=== PATIENT | female | born 1995 | race Caucasian/White ===

== ENCOUNTER 2016-09-03 09:04 | Emergency (ER) | payer OTHER ==
[~2016-09-03] VITALS: Ht 167.6 cm; Wt 77.0 kg
[~2016-09-03 09:04] MED LIST: IBUP-238 PO; METH500T3 PO; Z.0.BCPILL PO
[2016-09-03 09:10] VITALS: BP 135/90; PULSE 95; RESP 18; TEMP 98.5; O2SAT 100
[2016-09-03] MEDS ORDERED: PREN1TAB63 (09:19)
[2016-09-03 10:52] LABS: BLOOD, URINE NEG (NEG); GLUCOSE,URINE NEG (NEG); KETONE, URINE NEG (NEG); NITRITE,URINE NEG (NEG); PH, URINE 6.5 (5.0-8.5)
[2016-09-03 10:58] LABS: METHOD OF COLLECTION CATH; URINE COLOR YELLOW (YELLW/STRAW)
[2016-09-03 10:59] LABS: COMMENT (UR) CULT NOT INDICATED; CULTURE IF INDICATED CULT NOT INDICATED; SQUAMOUS EPITHELIAL CELL URINE 0-5 /hpf (0-5); WBC, URINE 0-2 /hpf (0-5)
--- NOTE | 2016-09-03 11:02 | PD ---
HPI Chief Complaint: Related Problem Time Seen by Provider: 09:15 Travel History International Travel<30 days: No Contact w/Intl Traveler<30days: No Traveled to known affect area: No History of Present Illness HPI 21-year-old G1 at 12 weeks presents with lower abdominal cramping and vaginal bleeding while she was at school today. She states that she had sex this morning. She states that she had ultrasound last week that showed everything in place and at 12 weeks. She states that she had a Pap smear at her appointment and she had old blood noted on Thursday but this morning it got heavy. She denies other concurrent complaints. She feels worse when she moves around. She denies other modifying factors. Quality is bright red. Duration is couple of days. She thinks her blood type is A- but she's not for sure. PFSH Past Medical History Diminished Hearing: No Immunizations Current: Yes ?: Not LMP: 06/11/16 Past Surgical History Other Surgery: Yes (L KNEE) Social History Alcohol Use: No Tobacco Use: No Substance Use: No Allergies-Medications (Allergen,Severity, Reaction): Coded Allergies: No Known Allergies (Unverified , 09/03/16) Reported Meds & Prescriptions Reported Meds & Active Scripts Active Reported Vitamins 0.8 mg ( Multivit-Min W/Fe-FA) 1 Tab Tab Review of Systems Except as stated in HPI: all other systems reviewed are Neg Physical Exam Narrative GENERAL: Well-nourished, well-developed patient. SKIN: Warm and dry. HEAD: Normocephalic and atraumatic. EYES: No injection or drainage. ENT: No nasal drainage noted. NECK: Supple, trachea midline. CARDIOVASCULAR: Regular rate and rhythm RESPIRATORY: Breath sounds equal bilaterally. No accessory muscle use. GASTROINTESTINAL: Abdomen soft, mild tenderness suprapubic area, nondistended. EXTREMITIES: No edema. BACK: Nontender without obvious deformity. NEUROLOGICAL: Awake and alert. Motor and sensory grossly within normal limits. Normal speech. GENITOURINARY: Normal external genitalia without lesions or erythema. Vaginal vault without blood or drainage. Cervical os was closed without drainage. Data Data Last Documented VS Vital Signs Date Time Temp Pulse Resp B/P Pulse Ox O2 Delivery O2 Flow Rate FiO2 09/03/16 12:15 54 16 116/51 99 09/03/16 11:09 Room Air 09/03/16 09:10 98.5 Orders Urinalysis - C+S If Indicated (09/03/16 09:15) Complete Rh (09/03/16 09:15) Hemoglobin (Hgb) (09/03/16 09:15) Labs Laboratory Tests Test 09/03/16 09/03/16 09:35 10:43 Hemoglobin 14.4 GM/DL Blood Type A POSITIVE Rho(D) Type POSITIVE Urine Collection Type CATH Urine Color YELLOW Urine Turbidity CLEAR Urine pH 6.5 Urine Specific [place] 1.014 Urine Protein NEG mg/dL Urine Glucose (UA) NEG mg/dL Urine Ketones NEG mg/dL Urine Occult Blood NEG Urine Nitrite NEG Urine Bilirubin NEG Urine Leukocyte Esterase NEG Urine WBC 0-2 /hpf Urine Squamous Epithelial 0-5 /hpf Cells Microscopic Urinalysis Comment CULT NOT INDICATED Urine Collection Time 10:43 [facility] Medical Decision Making Medical Screen Exam Complete: Yes Emergency Medical Condition: Yes Medical Record Reviewed: Yes (past history confirmed) Interpretation(s) ua no acute blood type A+\hgb stable Differential Diagnosis Miscarriage, threatened miscarriage, UTI, anemia Narrative Course Will check Rh, hemoglobin, urinalysis and discuss with her sulfonator operator Blood type is A+ a, hemoglobin stable, UA without signs of infection. Bleeding has resolved here and patient is feeling better. We will discuss with her sulfonator operator Patient denies any new complaints and states that they are feeling better. Patient happy with care, all questions answered. Patient knows that follow up is incumbent on them and to return to the emergency room immediately if new or worsening symptoms develop. Patient given strict return precautions, vitals reviewed and are normal, agrees to further workup as an outpatient. Procedures Procedure Narrative Emergency Department Pelvic ultrasound was performed with patient consent. The curvilinear probe was used in the transverse and sagittal views within the suprapubic region revealing single intrauterine . heart rate was 148 by M-mode. Physician Communication Physician Communication dr najera states thru office no privileges here Dr. Jimenes who is covering states likely postcoital and agrees to pelvic rest and discharge dr ramirez called back after patient left and will have nurses call to check on patient Diagnosis Primary Impression: Vaginal bleeding in Qualified Code: O46.91 - Vaginal bleeding in , first trimester Additional Impression: Abdominal pain in Qualified Code: O26.891 - Abdominal pain in , first trimester Referrals: ROSAURA RAMIREZ MD call for appointment Patient Instructions: General Instructions Additional Instructions: return as needed, pelvic rest until follow up Med/Other Pt SpecificInfo: No Change to Meds Disposition: 01 DISCHARGE HOME Condition: Stable Sanjuana Mccallum MD Sep 03, 2016 11:02
[2016-09-03 11:09] VITALS: BP 102/59; PULSE 52; RESP 16; O2SAT 100
[2016-09-03 12:15] VITALS: BP 116/51
== END 2016-09-03 12:46 | disposition home or self-care (01) ==
LOC: PHED 09:04
DX: O20.9 Hemorrhage in early pregnancy, unspecified (principal); Z3A.12 12 weeks gestation of pregnancy
CPT/HCPCS: 81001; 85018; 86901; 99284

== ENCOUNTER → 2016-12-16 | Outpatient (CLI) | payer OTHER ==
[~2016-12-16] MED LIST changes: -IBUP-238 PO; -METH500T3 PO; +PREN1TAB63; -Z.0.BCPILL PO
== END ==
LOC: HPND 08:49
PROVIDERS: ATTEND Obstetrics & Gynecology
DX: O28.3 Abnormal ultrasonic finding on antenatal screening of mother (principal); Z3A.00 Weeks of gestation of pregnancy not specified
CPT/HCPCS: 76811

== ENCOUNTER → 2017-02-02 | Outpatient (CLI) | payer OTHER | LOC: HPND 08:24 | PROVIDERS: ATTEND Obstetrics & Gynecology | DX: O35.8XX0 Maternal care for other (suspected) fetal abnormality and damage, not applicable or unspecified (principal) | CPT/HCPCS: 76816 ==